=== PATIENT | female | born 1985 | race Caucasian/White ===

== ENCOUNTER 2017-10-26 11:44 | Emergency (ER) | payer MEDICAID, OTHER ==
[~2017-10-26] VITALS: Ht 167.6 cm; Wt 54.2 kg
[~2017-10-26 11:44] MED LIST: CHLO473M3 PO; PREN-139 PO
[2017-10-26 12:23] LABS: URINE HCG NEGATIVE (NEG)
[2017-10-26 12:29] LABS: URINE AMPHETAMINE SCREEN NEGATIVE (Neg); URINE BARBITUATE SCREEN NEGATIVE (Neg); URINE BENZODIAZEPINES SCREEN NEGATIVE (Neg); URINE CANNABINOID SCREEN POSITIVE (Neg); URINE COCAINE SCREEN NEGATIVE (Neg); URINE METHADONE SCREEN NEGATIVE (Neg); URINE OPIATE SCREEN NEGATIVE (Neg); URINE PHENCYCLIDINE SCREEN NEGATIVE (Neg)
[2017-10-26 12:30] LABS: BASOPHILS % (AUTO) 0.6 % (0-1); EOSINOPHILS # (AUTO) 0.1 X10'3 (0-0.9); EOSINOPHILS % (AUTO) 2.1 % (0-6); HEMATOCRIT 42.4 % (35.0-45.0); HEMOGLOBIN 14.7 g/dl (12.0-16.0); LYMPHOCYTES # (AUTO) 2.5 X10'3 (1.1-4.8); LYMPHOCYTES % (AUTO) 39.9 % (21-51); MEAN CORPUSCULAR HEMOGLOBIN 32.6 PG (27.0-31.0); MEAN CORPUSCULAR HGB CONC 34.7 % (33.0-36.5); MEAN PLATELET VOLUME 8.5 FL (7.4-10.4); MONOCYTES # (AUTO) 0.4 X10'3 (0-0.9); MONOCYTES % (AUTO) 5.8 % (2-12); NEUTROPHILS # (AUTO) 3.3 X10'3 (1.8-7.7); NEUTROPHILS % (AUTO) 51.6 % (42-75); PLATELET COUNT 290 X10'3 (140-440); RED BLOOD COUNT 4.51 X10'6 (4.20-5.60); RED CELL DISTRIBUTION WIDTH 14.3 % (11.5-14.5); WHITE BLOOD COUNT 6.3 X10'3 (4.5-11.0)
[2017-10-26 12:31] LABS: CLARITY,URINE SLIGHTLY CLOUDY (Clear); COLOR,URINE YELLOW (Yellow); GLUCOSE, URINE NEGATIVE (Neg); KETONES,URINE NEGATIVE (Neg); LEUKOCYTE ESTERASE ,URINE NEGATIVE (Neg); NITRITES, URINE NEGATIVE (Neg); OCCULT BLOOD,URINE NEGATIVE (Neg); PH,URINE 6.5 (4.8-8.0); PROTEIN,URINE 30 mg/dl (Neg); UROBILINOGEN,URINE 0.2 E.U/dL (0.2-1.0)
[2017-10-26 12:33] LABS: UA COLLECTION TYPE CLN CATCH MIDSTREAM
[2017-10-26 12:37] LABS: MUCUS STRANDS MANY /LPF (Neg); SQUAMOUS EPITHELIAL CELL,UR MANY /LPF (FEW)
[2017-10-26 12:39] LABS: BACTERIA,URINE 2+ /HPF (Neg); RBC,URINE NONE SEEN /HPF (0-2); WBC,URINE 0-4 /HPF (0-4)
[2017-10-26] MEDS ORDERED: NO HOME MEDS (12:39)
[2017-10-26 12:56] LABS: ALANINE AMINOTRANSFERASE 57 U/L (12-78); ALBUMIN 4.7 G/DL (3.4-5.0); ALBUMIN/GLOBULIN RATIO 1.3 (1.1-1.5); ALKALINE PHOSPHATASE 97 IU/L (46-116); ANION GAP 8 (8-16); ASPARTATE AMINO TRANSFERASE 28 U/L (10-37); BLOOD UREA NITROGEN 19 MG/DL (7-18); BUN/CREATININE RATIO 25.7 (6.6-38.0); CALCIUM 9.8 MG/DL (8.5-10.1); CHLORIDE 104 MMOL/L (99-107); CREATININE 0.74 MG/DL (0.40-0.90); GLUCOSE 96 MG/DL (70-104); SODIUM 141 MMOL/L (135-145); TOTAL CARBON DIOXIDE 28.9 MMOL/L (24-32); TOTAL PROTEIN 8.4 G/DL (6.4-8.2); eGFR > 90 ML/MIN
[2017-10-26 13:00] LABS: ACETAMINOPHEN < 2.0 UG/ML (10-30); ETHANOL < 0.010 GM/DL (0.0-0.010)
[2017-10-26] MEDS ORDERED: LORazepam 2 mg/ml vial IM ONE (14:10)
[2017-10-26] MEDS: OLANZapine 5mg rapidly disint. tablet PO SCH ×2 (18:10→21:06)
[2017-10-27] MEDS: OLANZapine 5mg rapidly disint. tablet PO SCH ×2 (14:12→20:51)
[2017-10-27] MEDS: LORazepam 1 MG tablet PO PRN (20:54)
[2017-10-28] MEDS: OLANZapine 5mg rapidly disint. tablet PO SCH ×3 (08:33→21:13)
[2017-10-28] MEDS ORDERED: LORazepam 2 mg/ml vial IM ONE (15:25)
[2017-10-29] MEDS: LORazepam 1 MG tablet PO PRN ×2 (00:16→19:08)
[2017-10-29] MEDS: OLANZapine 5mg rapidly disint. tablet PO SCH ×3 (08:24→20:12)
[2017-10-30] MEDS: OLANZapine 5mg rapidly disint. tablet PO SCH (08:54)
[2017-10-30] MEDS ORDERED: OLAN5TAB3 PO (10:32)
[2017-10-30 11:09] VITALS: BP 108/72
== END 2017-10-30 11:15 ==
LOC: ER 11:45
DX: F79 Unspecified intellectual disabilities (principal); F32.9 Major depressive disorder, single episode, unspecified; F20.9 Schizophrenia, unspecified; M19.90 Unspecified osteoarthritis, unspecified site; Z56.0 Unemployment, unspecified
CPT/HCPCS: 36415; 80053; 80305; 80320; 80329; 81001; 81025; 84443; 85025; 93005; 96372; 99285; J2060

== ENCOUNTER 2019-08-27 12:31 | Emergency (ER) | payer MEDICAID, OTHER ==
[~2019-08-27] VITALS: Ht 162.6 cm; Wt 65.9 kg
[~2019-08-27 12:31] MED LIST changes: -CHLO473M3 PO; +LIDOcaine 1% W/epiNEPHrine 1:100,000 20ml vial ONE; +NO HOME MEDS; +OLAN5TAB3 PO; -PREN-139 PO
[2019-08-27 12:46] VITALS: BP 148/88
[2019-08-27] MEDS ORDERED: TETanus/Pertussis (Acell)/Diphther VAC/PF (Tdap-Adult) 0.5ml syringe IMVAC ONE (13:25)
[2019-08-27] MEDS ORDERED: bacitracin 15gm ointment TP ONE (13:25)
== END 2019-08-27 15:06 | disposition home or self-care (01) ==
LOC: ER 12:31
DX: S91.111A Laceration without foreign body of right great toe without damage to nail, initial encounter (principal); M19.90 Unspecified osteoarthritis, unspecified site; G89.29 Other chronic pain; Z72.89 Other problems related to lifestyle; Z56.0 Unemployment, unspecified; Z79.899 Other long term (current) drug therapy; W45.0XXA Nail entering through skin, initial encounter; Y93.89 Activity, other specified; Y92.89 Other specified places as the place of occurrence of the external cause; Y99.8 Other external cause status
CPT/HCPCS: 12001; 73660; 90715; 99283

== ENCOUNTER 2022-02-12 09:24 | Emergency (ER) | payer MEDICAID ==
[~2022-02-12] VITALS: Ht 162.6 cm; Wt 59.1 kg
[~2022-02-12 09:24] MED LIST changes: -LIDOcaine 1% W/epiNEPHrine 1:100,000 20ml vial ONE
[2022-02-12 10:45] LABS: BASOPHILS % (AUTO) 0.8 % (0-1); EOSINOPHILS # (AUTO) 0.1 X10'3 (0-0.9); EOSINOPHILS % (AUTO) 1.6 % (0-6); HEMATOCRIT 34.1 % (35.0-45.0); HEMOGLOBIN 11.5 g/dl (12.0-16.0); LYMPHOCYTES % (AUTO) 35.3 % (21-51); MEAN CORPUSCULAR HEMOGLOBIN 31.6 PG (27.0-31.0); MEAN CORPUSCULAR HGB CONC 33.7 g/dL (33.0-36.5); MEAN CORPUSCULAR VOLUME 93.8 FL (78-98); MEAN PLATELET VOLUME 7.9 FL (7.4-10.4); MONOCYTES # (AUTO) 0.6 X10'3 (0-0.9); MONOCYTES % (AUTO) 10.8 % (2-12); NEUTROPHILS # (AUTO) 2.9 X10'3 (1.8-7.7); NEUTROPHILS % (AUTO) 51.5 % (42-75); PLATELET COUNT 269 X10'3 (140-440); RED BLOOD COUNT 3.64 X10'6 (4.20-5.60); WHITE BLOOD COUNT 5.6 X10'3 (4.5-11.0)
[2022-02-12 10:48] LABS: ALANINE AMINOTRANSFERASE 43 U/L (12-78); ALBUMIN 3.9 G/DL (3.4-5.0); ALBUMIN/GLOBULIN RATIO 1.1 (1.1-1.5); ALKALINE PHOSPHATASE 71 IU/L (46-116); ANION GAP 10 (8-16); ASPARTATE AMINO TRANSFERASE 45 U/L (10-37); BILIRUBIN,TOTAL 1.1 MG/DL (0.1-1.0); BLOOD UREA NITROGEN 15 MG/DL (7-18); BUN/CREATININE RATIO 19.7 (6.6-38.0); CALCIUM 8.9 MG/DL (8.5-10.1); CHLORIDE 102 MMOL/L (99-107); CREATININE 0.76 MG/DL (0.40-0.90); GLUCOSE 105 MG/DL (70-104); POTASSIUM 3.5 MMOL/L (3.5-5.1); SODIUM 140 MMOL/L (135-145); TOTAL CARBON DIOXIDE 27.9 MMOL/L (24-32); TOTAL PROTEIN 7.3 G/DL (6.4-8.2); eGFR 87 ML/MIN
[2022-02-12 10:58] LABS: ETHANOL < 0.010 GM/DL (0.0-0.010)
--- NOTE | 2022-02-12 11:03 | NUR ---
Patient refusing to change into green scrubs. RN and Security Dawn advised patient to get dressed or we would help her. Patient complied. Patient went into the BR because RN asked for a urine sample. Patient started banging on the door and refused to give a sample. Patient does appear psychotic. Continue to monitor.
--- NOTE | 2022-02-12 11:58 | NUR ---
Patient making big motions with her hands. Stating "cheese pop...cheese pop......blue watergate...cheese pop. Patient appears to be psychotic. Continue to monitor.
--- NOTE | 2022-02-12 12:15 | NUR ---
Patient refusing lunch. Continue to monitor.
[2022-02-12] MEDS ORDERED: LORazepam 2 mg/ml vial IM ONE (12:25)
[2022-02-12] MEDS ORDERED: haloperidol lactate 5mg/ml inj IM ONE (12:25)
[2022-02-12] MEDS ORDERED: diphenhydrAMINE 50 mg/ml inj IM ONE (12:25)
--- NOTE | 2022-02-12 12:40 | NUR ---
Patient keeps hitting herself hard in the chest. Then she slaps her arms hard. RN asks patient to stop and patient complies. Then she will start up again. Patient acting strange and appears psychotic. Continue to monitor.
--- NOTE | 2022-02-12 12:45 | NUR ---
Patient started to hit herself again and then hit the Code Blue button and starts to run. Patient was stopped and RN received order for Haldol, Ativan and Benadryl. Continue to monitor.
--- NOTE | 2022-02-12 14:17 | NUR ---
Patient sleeping on right side. No distress observed. Continue to monitor.
--- NOTE | 2022-02-12 16:14 | NUR ---
Patient sits up and stretches and then lays back down. No distress observed. Water pitcher at bedside. Continue to monitor.
--- NOTE | 2022-02-12 16:35 | NUR ---
Patient stood up and RN gave patient her pitcher for a drink of water. Patient nods her head no when RN asked her if she needs to go to the BR. Patient stated she was cold and RN wrapped a warm blanket over her shoulders and upper body. Patient laid back down. No distress observed. Continue to monitor.
--- NOTE | 2022-02-12 18:52 | NUR ---
The patient is currently sleeping.
--- NOTE | 2022-02-12 20:11 | NUR ---
The patient up briefly to use the bathroom and now is back asleep
[2022-02-12 20:41] LABS: URINE HCG NEGATIVE (NEG)
[2022-02-12 20:54] LABS: CLARITY,URINE SLIGHTLY CLOUDY (Clear); COLOR,URINE YELLOW (Yellow); GLUCOSE, URINE NEGATIVE (Neg); KETONES,URINE NEGATIVE (Neg); LEUKOCYTE ESTERASE ,URINE NEGATIVE (Neg); NITRITES, URINE NEGATIVE (Neg); OCCULT BLOOD,URINE NEGATIVE (Neg); PH,URINE 5.5 (4.8-8.0); PROTEIN,URINE TRACE mg/dl (Neg); UROBILINOGEN,URINE 0.2 E.U/dL (0.2-1.0)
[2022-02-12 20:55] LABS: UA COLLECTION TYPE NON-SPECIFIED; URINE AMPHETAMINE SCREEN NEGATIVE (Neg); URINE BARBITUATE SCREEN NEGATIVE (Neg); URINE BENZODIAZEPINES SCREEN NEGATIVE (Neg); URINE CANNABINOID SCREEN NEGATIVE (Neg); URINE COCAINE SCREEN NEGATIVE (Neg); URINE METHADONE SCREEN NEGATIVE (Neg); URINE OPIATE SCREEN NEGATIVE (Neg); URINE PHENCYCLIDINE SCREEN NEGATIVE (Neg)
[2022-02-12 20:58] LABS: BACTERIA,URINE 3+ /HPF (Neg); RBC,URINE 0-2 /HPF (0-2); WBC,URINE 0-4 /HPF (0-4)
[2022-02-12 20:59] LABS: MUCUS STRANDS MODERATE /LPF (Neg); SQUAMOUS EPITHELIAL CELL,UR MANY /LPF (FEW)
--- NOTE | 2022-02-12 21:05 | NUR ---
packet faxed to [facility] at [phone]
--- NOTE | 2022-02-12 21:19 | NUR ---
The patient appears to be sleeping
--- NOTE | 2022-02-12 23:50 | NUR ---
The patient appears to be sleeping.
--- NOTE | 2022-02-13 01:27 | NUR ---
The patient appears to be sleeping
--- NOTE | 2022-02-13 02:17 | NUR ---
The patient appears to be sleeping
--- NOTE | 2022-02-13 04:04 | NUR ---
The patient appears to be sleeping
--- NOTE | 2022-02-13 05:12 | NUR ---
The patient appears to be sleeping
--- NOTE | 2022-02-13 06:30 | NUR ---
Assumed care of patient, pt. is sleeping at this time laying on her back, rise and fall of chest noted.
--- NOTE | 2022-02-13 08:00 | NUR ---
1:1 was completed at bedside, pt. presents as guarded with conversation and denies all MH s/s. She does admit to having occassional depression, but denies any current S/I. Pt. does not make any delusional statements or present with internal preoccupation at this time.
[2022-02-13] MEDS ORDERED: NO HOME MEDS (08:24)
--- NOTE | 2022-02-13 08:30 | NUR ---
Pt. is sitting up eating breakfast at this time, she ate 100%.
--- NOTE | 2022-02-13 08:58 | NUR ---
Pt. is sitting up talking to [facility] at this time.
[2022-02-13] MEDS ORDERED: LORazepam 1 MG tablet PO ONE (10:00)
--- NOTE | 2022-02-13 10:00 | NUR ---
Pt. became agitated and began yelling and pacing the unit r/t her desire to discharge. She is unable to remember the telephone numbers of any of her family members which [facility] has requested before they will consider discharge. Security was called and pt. was able to be verbally redirected. An order for 1mg of Ativan was obtained from Dr. Reed and pt. accepted this medication with encouragement. Pt. is laying in bed at this time, will continue to monitor closely.
--- NOTE | 2022-02-13 11:01 | NUR ---
Pt. remains restless and is trying to contact her family via telephone at this time.
--- NOTE | 2022-02-13 11:04 | NUR ---
Pt. making delusional statements, "My car is upstairs." She makes bizarre guestures and taps different body parts with her fist stating, "This is code." Pt. continues to perseverate on her desire to discharge, she was again verbally redirected by staff and will continue to monitor closely.
--- NOTE | 2022-02-13 11:45 | NUR ---
Spoke to [facility] regarding possible placement for pt.
--- NOTE | 2022-02-13 12:25 | NUR ---
Pt. pacing and restless, trying to call family at this time. She reported she had their telephone numbers in her bags she came in with, however bags were searched and numbers were not found. Pt. continues to perseverate on her desire to discharge and states, "You guys are holding me against my will." However, she is again able to be verbally redircted and returns to bed.
--- NOTE | 2022-02-13 12:37 | NUR ---
Per [facility], pt. has been accepted at [facility] and will be picked-up by [facility] courtesy van driver at 1430.
--- NOTE | 2022-02-13 14:34 | NUR ---
Pt. was discharged to [facility] at this time, she ambulated to the vehicle which will be transporting her accompanied by the courier delivery driver and security. Pt's belongings were returned to her and by [employer].
[2022-02-13 14:38] VITALS: BP 109/75
== END 2022-02-13 14:48 ==
LOC: ER 09:25
DX: F29 Unspecified psychosis not due to a substance or known physiological condition (principal); Z20.822 Contact with and (suspected) exposure to COVID-19; F20.9 Schizophrenia, unspecified; F22 Delusional disorders; M19.90 Unspecified osteoarthritis, unspecified site; Z98.890 Other specified postprocedural states; Z72.89 Other problems related to lifestyle; Z56.0 Unemployment, unspecified; Z79.899 Other long term (current) drug therapy
CPT/HCPCS: 36415; 80053; 80305; 80320; 81001; 81025; 84443; 85025; 87811; 96372; 99285; J1200; J1630; J2060